=== PATIENT | male | born 1960 | race Two or more races ===

== ENCOUNTER 2019-02-21 09:06 | Outpatient (CLI) | payer OTHER | END 2019-02-21 09:15 | disposition home or self-care (01) | LOC: TOM 09:06 | DX: K56.600 Partial intestinal obstruction, unspecified as to cause (principal) ==

== ENCOUNTER 2021-04-21 13:20 | Inpatient (IN) | payer OTHER ==
[~2021-04-21] VITALS: Ht 170.2 cm; Wt 85.7 kg
[2021-04-21] MEDS ORDERED: NORVASC10 MG PO (13:42)
[2021-04-21] MEDS ORDERED: ZESTRIL20 MG PO (13:43)
== END 2021-04-25 13:07 | disposition home or self-care (01) | DRG 65 ==
LOC: ER 13:20 → MEDI 18:46 → ICU-2 18:46 → MEDI 04-23 11:12
PROVIDERS: ADMIT Internal Medicine; ATTEND Internal Medicine
PROC: B020ZZZ Computerized Tomography (CT Scan) of Brain (ICD-10-PCS; 2021-04-21)
PROC: B24BZZZ Ultrasonography of Heart with Aorta (ICD-10-PCS; 2021-04-21)
PROC: B030ZZZ Magnetic Resonance Imaging (MRI) of Brain (ICD-10-PCS; principal; 2021-04-22)
DX: I63.512 Cerebral infarction due to unspecified occlusion or stenosis of left middle cerebral artery (principal); I48.20 Chronic atrial fibrillation, unspecified; Z79.01 Long term (current) use of anticoagulants; I10 Essential (primary) hypertension; E11.9 Type 2 diabetes mellitus without complications; Z20.822 Contact with and (suspected) exposure to COVID-19; R47.01 Aphasia
CPT/HCPCS: 70551